=== PATIENT | female | born 1975 | race Caucasian/White ===

== ENCOUNTER 2024-10-18 17:46 | Emergency (ER) | payer OTHER ==
[~2024-10-18] VITALS: Ht 165.1 cm; Wt 118.3 kg
[2024-10-18] MEDS: ketorolac trometh 15mg/ml vial 15 MG/ML ML IM ONE (19:25)
[2024-10-18 19:43] VITALS: BP 172/105; PULSE 79; RESP 16; TEMP 98; O2SAT 98
== END 2024-10-18 19:45 | disposition home or self-care (01) ==
LOC: ER 17:47
DX: S43.492A Other sprain of left shoulder joint, initial encounter (principal); R07.89 Other chest pain; Z88.8 Allergy status to other drugs, medicaments and biological substances; V89.2XXA Person injured in unspecified motor-vehicle accident, traffic, initial encounter; Y93.89 Activity, other specified; Y92.89 Other specified places as the place of occurrence of the external cause; Y99.8 Other external cause status
CPT/HCPCS: 73030; 96372; 99283; J1885

== ENCOUNTER 2024-10-22 18:12 | Emergency (ER) | payer OTHER ==
[~2024-10-22] VITALS: Ht 165.1 cm; Wt 102.0 kg
[2024-10-22 18:36] VITALS: BP 142/79; PULSE 75; RESP 15; O2SAT 100
[2024-10-22] MEDS: ketorolac trometh 30MG/ML vial 30 MG/ML VIAL IM STA (21:08)
[2024-10-22 21:30] VITALS: TEMP 97.1
== END 2024-10-22 21:42 | disposition home or self-care (01) ==
LOC: ER 18:13
DX: S43.402A Unspecified sprain of left shoulder joint, initial encounter (principal); Z88.8 Allergy status to other drugs, medicaments and biological substances; V87.7XXA Person injured in collision between other specified motor vehicles (traffic), initial encounter; Y93.89 Activity, other specified; Y92.410 Unspecified street and highway as the place of occurrence of the external cause; Y99.8 Other external cause status
CPT/HCPCS: 96372; 99283; J1885

== ENCOUNTER 2024-11-17 15:04 | Emergency (ER) | payer BC, OTHER ==
[~2024-11-17] VITALS: Ht 165.1 cm; Wt 120.5 kg
[2024-11-17 15:14] VITALS: TEMP 97.8
[2024-11-17 16:32] LABS: BASOPHILS % (AUTO) 0.3 % (0-1); EOSINOPHILS # (AUTO) 0.1 X10'3 (0-0.9); EOSINOPHILS % (AUTO) 0.6 % (0-6); HEMATOCRIT 37.7 % (35.0-45.0); HEMOGLOBIN 12.1 g/dl (12.0-16.0); LYMPHOCYTES # (AUTO) 2.4 X10'3 (1.1-4.8); LYMPHOCYTES % (AUTO) 23.5 % (21-51); MEAN CORPUSCULAR HEMOGLOBIN 26.7 PG (27.0-31.0); MEAN CORPUSCULAR HGB CONC 32.1 g/dL (33.0-36.5); MEAN CORPUSCULAR VOLUME 83.2 FL (78-98); MEAN PLATELET VOLUME 7.5 FL (7.4-10.4); MONOCYTES # (AUTO) 0.7 X10'3 (0-0.9); MONOCYTES % (AUTO) 7.4 % (2-12); NEUTROPHILS # (AUTO) 6.8 X10'3 (1.8-7.7); NEUTROPHILS % (AUTO) 68.2 % (42-75); PLATELET COUNT 323 X10'3 (140-440); RED BLOOD COUNT 4.53 X10'6 (4.20-5.60); RED CELL DISTRIBUTION WIDTH 17.6 % (11.5-14.5)
[2024-11-17] MEDS: ketorolac trometh 30MG/ML vial 30 MG/ML VIAL IM ONE (16:49)
[2024-11-17 16:59] LABS: ALANINE AMINOTRANSFERASE 31 U/L (12-78); ALBUMIN 3.8 G/DL (3.4-5.0); ALBUMIN/GLOBULIN RATIO 1.2 (1.1-1.5); ALKALINE PHOSPHATASE 107 IU/L (46-116); ANION GAP 8 (8-16); ASPARTATE AMINO TRANSFERASE 12 U/L (10-37); BILIRUBIN,TOTAL 0.2 MG/DL (0.1-1.0); BLOOD UREA NITROGEN 13 MG/DL (7-18); BUN/CREATININE RATIO 15.9 (10.0-20.0); CALCIUM 8.9 MG/DL (8.5-10.1); CHLORIDE 106 MMOL/L (99-107); CREATININE 0.82 MG/DL (0.40-0.90); GLUCOSE 101 MG/DL (70-104); POTASSIUM 3.8 MMOL/L (3.5-5.1); SODIUM 143 MMOL/L (135-145); TOTAL CARBON DIOXIDE 28.9 MMOL/L (24-32); TOTAL PROTEIN 7.1 G/DL (6.4-8.2); eCRCL 76 ML/MIN; eGFR 75 ML/MIN
[2024-11-17 17:10] LABS: PRO BRAIN NATRIURETIC PEPTIDE 37 PG/ML (0-125)
[2024-11-17 18:29] VITALS: BP 124/82; PULSE 86; RESP 15; O2SAT 100
== END 2024-11-17 18:31 | disposition home or self-care (01) ==
LOC: ER 15:05
DX: R51.9 Headache, unspecified (principal); I10 Essential (primary) hypertension
CPT/HCPCS: 36415; 70450; 71045; 80053; 83880; 84484; 85025; 93005; 96372; 99285; J1885